=== PATIENT | male | born 1980 | race Two or more races ===

== ENCOUNTER 2023-07-03 15:50 | Emergency (ER) | payer MEDICAID, OTHER ==
[~2023-07-03] VITALS: Ht 165.1 cm; Wt 102.0 kg
[2023-07-03] MEDS: HYDROcodone-ACET 10/325MG TAB PO ONE (17:25)
[2023-07-03] MEDS: ONDANSETRON ODT 4 MG TAB PO ONE (17:25)
[2023-07-03] MEDS ORDERED: ZOFR4T PO (18:16)
[2023-07-03] MEDS ORDERED: ACE3T PO (18:19)
[2023-07-03 18:27] VITALS: BP 130/80; PULSE 70; RESP 20; TEMP 98; O2SAT 98
== END 2023-07-03 18:29 | disposition home or self-care (01) ==
LOC: ER 15:50
DX: G43.909 Migraine, unspecified, not intractable, without status migrainosus (principal); E66.01 Morbid (severe) obesity due to excess calories; Z68.37 Body mass index [BMI] 37.0-37.9, adult
CPT/HCPCS: 70450; 99284; Q0162